=== PATIENT | male | born 2000 | race Caucasian/White ===

== ENCOUNTER 2020-12-30 23:12 | Emergency (ER) | payer OTHER ==
[~2020-12-30] VITALS: Ht 170.2 cm; Wt 83.5 kg
[2020-12-31 02:44] VITALS: BP 122/67
== END 2020-12-31 02:44 | disposition home or self-care (01) ==
LOC: M.ERS 23:12
DX: S61.211A Laceration without foreign body of left index finger without damage to nail, initial encounter (principal); Z91.013 Allergy to seafood; W26.0XXA Contact with knife, initial encounter; Y93.89 Activity, other specified; Y92.89 Other specified places as the place of occurrence of the external cause; Y99.0 Civilian activity done for income or pay